=== PATIENT | female | born 2000 | race Caucasian/White ===

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

== ENCOUNTER → 2020-06-01 | Outpatient (REF) | payer OTHER, MEDICAID ==
[2020-06-01 12:38] LABS: APPEARANCE, URINE CLEAR (CLEAR); BACTERIA, URINE AUTO 1+ (NEGATIVE); BILIRUBIN, URINE AUTO NEGATIVE (NEGATIVE); BLOOD, URINE BLOOD NEGATIVE (NEGATIVE); COLOR, URINE YELLOW (YELLOW); GLUCOSE, URINE (UA) AUTO NEGATIVE (NEGATIVE); KETONE, URINE AUTO NEGATIVE (NEGATIVE); LEUKOCYTE ESTERASE, URINE AUTO NEGATIVE (NEGATIVE); MUCUS, URINE SMALL (NEGATIVE); NITRITE, URINE AUTO NEGATIVE (NEGATIVE); PROTEIN, URINE AUTO NEGATIVE (NEGATIVE); RBC, URINE AUTO 1 /HPF (0-3); SPECIFIC GRAVITY URINE AUTO 1.024 (1.002-1.035); SQUAMOUS EPITHELIAL CELL UR AU 1 /HPF (0-6); UROBILINOGEN, URINE AUTO 0.2 mg/dL (0.0-2.0); WBC, URINE AUTO 1 /HPF (0-3)
== END ==
LOC: M LAB REF 12:09
PROVIDERS: ATTEND Physician Assistant Medical
DX: R30.0 Dysuria (principal)

== ENCOUNTER → 2021-05-09 | Outpatient (CLI) | payer OTHER, MEDICAID ==
[~2021-05-09] MED LIST changes: -LEVOTAB10; +LEVOTAB10 PO; -TRI-LO-MARZIA; +TRI-LO-MARZIA PO
== END ==
LOC: M LABSMTC 10:01
PROVIDERS: ATTEND Anesthesiology
DX: Z01.818 Encounter for other preprocedural examination (principal); Z11.52 Encounter for screening for COVID-19

== ENCOUNTER 2021-05-14 09:06 | Day surgery (SDC) | payer OTHER, MEDICAID ==
[~2021-05-14] VITALS: Ht 172.7 cm; Wt 134.3 kg
[~2021-05-14 09:06] MED LIST changes: +LR 1,000 ML IV ONE
[2021-05-14] MEDS ORDERED: METHYLENE BLUE 0.5% (5MG/ML) 10 ML AMP (PROVAYBLUE) As Ordered ONE (09:30)
[2021-05-14] MEDS ORDERED: BUPIVACAINE HCL 0.5% 30ML VIAL As Ordered ONE (09:30)
[2021-05-14] MEDS ORDERED: OXYMETAZOLINE 0.05% NASAL SPRAY (AFRIN) As Ordered ONE (09:30)
[2021-05-14] MEDS ORDERED: ONDANSETRON 4MG/2ML VIAL As Ordered ONE (10:11)
[2021-05-14] MEDS ORDERED: fentaNYL 100 MCG/2 ML INJECTION As Ordered ONE ×3 (10:11→11:03)
[2021-05-14] MEDS ORDERED: LIDOCAINE 2% 100MG/5ML SDV (FOR ANES.) As Ordered ONE (10:11)
[2021-05-14] MEDS ORDERED: MIDAZOLAM INJ 2MG/2ML VIAL (J2250 PER 1MG) As Ordered ONE (10:11)
[2021-05-14] MEDS ORDERED: METOCLOPRAMIDE INJ 10MG/2ML VIAL (J2765 PER 1) As Ordered ONE (10:11)
[2021-05-14] MEDS ORDERED: dexameTHASONE 4 MG/ML 1ML VIAL (J1100 PER 1MG) As Ordered ONE (10:11)
[2021-05-14] MEDS ORDERED: ACETAMINOPHEN 1000MG 100ML IV BTL (OFIRMEV) (J0131 PER 10MG) As Ordered ONE (10:11)
[2021-05-14] MEDS ORDERED: propofoL 200 MG/20 ML VIAL As Ordered ONE (10:11)
[2021-05-14] MEDS ORDERED: DESFLURANE 240 ML INHALANT As Ordered ONE (10:28)
[2021-05-14] MEDS ORDERED: SEVOFLURANE INHAL SOLN 250 ML BTL As Ordered ONE (10:31)
[2021-05-14] MEDS: fentaNYL 100 MCG/2 ML INJECTION IV PRN ×4 (11:06→11:31)
[2021-05-14] MEDS ORDERED: LR 1,000 ML IV SCH ×2 (11:20→12:05)
[2021-05-14] MEDS ORDERED: ONDANSETRON 4MG/2ML VIAL IV PRN ×2 (11:20→12:05)
[2021-05-14] MEDS ORDERED: oxyCODONE 5MG TAB PO PRN (11:20)
[2021-05-14] MEDS ORDERED: HYDROcodone/APAP LIQUID 7.5-325MG 15ML UDC (LORTAB ELIXIR) PO PRN (12:05)
[2021-05-14 12:40] VITALS: BP 146/77
== END 2021-05-14 12:54 | disposition home or self-care (01) ==
LOC: M SDC 09:06
PROVIDERS: ATTEND Otolaryngology
DX: J35.3 Hypertrophy of tonsils with hypertrophy of adenoids (principal); K21.9 Gastro-esophageal reflux disease without esophagitis; R06.83 Snoring; Z77.098 Contact with and (suspected) exposure to other hazardous, chiefly nonmedicinal, chemicals; Z79.3 Long term (current) use of hormonal contraceptives; F12.20 Cannabis dependence, uncomplicated
CPT/HCPCS: 42821; 81025; 88302; J0131; J1100; J2250; J2405; J2765; J3010; Q9968

== ENCOUNTER → 2021-11-15 | Outpatient (REF) | payer OTHER, MEDICAID ==
[~2021-11-15] MED LIST changes: -LR 1,000 ML IV ONE
== END ==
LOC: M LAB REF 16:58
PROVIDERS: ATTEND Physician Assistant
DX: B34.9 Viral infection, unspecified (principal)

== ENCOUNTER → 2022-03-23 | Outpatient (REF) | payer OTHER, MEDICAID | LOC: M WUC 18:52 | PROVIDERS: ATTEND Student in an Organized Health Care Education/Training Program | DX: J02.9 Acute pharyngitis, unspecified (principal) ==

== ENCOUNTER 2022-04-09 21:14 | Emergency (ER) | payer OTHER ==
[~2022-04-09] VITALS: Ht 172.7 cm; Wt 118.2 kg
[2022-04-09 21:14] VITALS: BP 147/79
[2022-04-09] MEDS ORDERED: MORPHINE 10 MG/ML 1ML VIAL IM ONE (21:45)
[2022-04-09] MEDS ORDERED: SILVER SULFADIAZINE 1% CR 50 GM JAR TOP ONE (21:45)
[2022-04-09] MEDS ORDERED: BOOSTRIX/ADACEL VACCINE (DIPHTH/PERTUSS/ACELL/TETANUS) 0.5ML SYR IM.IMMUN ONE (21:55)
[2022-04-09] MEDS ORDERED: PERC5TAB12 PO (22:05)
[2022-04-09] MEDS ORDERED: SILV1CRE60 TOP (22:05)
[2022-04-09] MEDS ORDERED: OXYCODONE/APAP 5MG/325MG(HOME DOSE PACK) PO ONE (22:50)
== END 2022-04-09 23:09 | disposition home or self-care (01) ==
LOC: M ED 21:14
DX: T22.112A Burn of first degree of left forearm, initial encounter (principal); T25.222A Burn of second degree of left foot, initial encounter; T31.0 Burns involving less than 10% of body surface; X12.XXXA Contact with other hot fluids, initial encounter; Y99.0 Civilian activity done for income or pay; J30.2 Other seasonal allergic rhinitis
CPT/HCPCS: 90471; 90715; 96372; 99284; J2270

== ENCOUNTER 2022-07-02 12:29 | Emergency (ER) | payer OTHER ==
[~2022-07-02] VITALS: Ht 172.7 cm; Wt 109.6 kg
[~2022-07-02 12:29] MED LIST changes: +PERC5TAB12 PO; +SILV1CRE60 TOP
[2022-07-02 12:30] VITALS: BP 132/89
[2022-07-02 13:15] LABS: HEMATOCRIT 47.7 % (36.0-47.0); HEMOGLOBIN 16.3 g/dl (12.0-15.5); MEAN CORPUSCULAR HGB CONC 34.2 g/dl (32.0-36.5); MEAN CORPUSCULAR VOLUME 90.7 fl (80.0-96.0); PLATELET COUNT, AUTOMATED 222 10^3/uL (150-450); RED BLOOD COUNT 5.26 10^6/uL (4.00-5.40)
[2022-07-02 13:44] LABS: BLOOD UREA NITROGEN 17 MG/DL (9-23); CALCIUM LEVEL 8.9 MG/DL (8.5-10.1); CARBON DIOXIDE LEVEL 22 MMOL/L (20-31); CHLORIDE LEVEL 98 MMOL/L (98-107); CREATININE FOR GFR 0.89 MG/DL (0.55-1.30); GLOMERULAR FILTRATION RATE > 60.0 (>60); GLUCOSE, FASTING 98 MG/DL (60-100); POTASSIUM SERUM 3.6 MMOL/L (3.5-5.1); SODIUM LEVEL 133 MMOL/L (136-145)
[2022-07-02 15:06] LABS: HCG, SERUM QUALITATIVE NEGATIVE (NEGATIVE)
[2022-07-02] MEDS ORDERED: ONDA4TAB6 PO (15:53)
[2022-07-02] MEDS ORDERED: ONDANSETRON 4MG ORAL DISINTEGRATING TAB PO ONE (15:55)
== END 2022-07-02 16:26 | disposition home or self-care (01) ==
LOC: M ED 12:29
DX: R11.2 Nausea with vomiting, unspecified (principal); R19.7 Diarrhea, unspecified; Z79.899 Other long term (current) drug therapy; Z79.3 Long term (current) use of hormonal contraceptives

== ENCOUNTER → 2022-09-22 | Outpatient (REF) | payer OTHER ==
[~2022-09-22] MED LIST changes: +ONDA4TAB6 PO
== END ==
LOC: M SFHCPLAZ 19:02
PROVIDERS: ATTEND Nurse Practitioner Adult Health
DX: R19.7 Diarrhea, unspecified (principal)

== ENCOUNTER → 2022-09-22 | Outpatient (CLI) | payer OTHER ==
[2022-09-22 14:08] LABS: HEMATOCRIT 42.9 % (36.0-47.0); HEMOGLOBIN 14.1 g/dl (12.0-15.5); HEMOGLOBIN A1c 4.9 % (4.0-6.0); MEAN CORPUSCULAR HEMOGLOBIN 30.9 pg (27.0-33.0); MEAN CORPUSCULAR HGB CONC 32.9 g/dl (32.0-36.5); MEAN CORPUSCULAR VOLUME 94.1 fl (80.0-96.0); PLATELET COUNT, AUTOMATED 230 10^3/uL (150-450); RED BLOOD COUNT 4.56 10^6/uL (4.00-5.40); WHITE BLOOD COUNT 8.8 10^3/uL (4.0-10.0)
[2022-09-22 14:16] LABS: ALBUMIN 4.1 G/DL (3.2-5.2); ALKALINE PHOSPHATASE 76 U/L (46-116); ALT/SGPT 20 U/L (7.0-40); AST/SGOT 15 U/L (<34); BILIRUBIN,TOTAL 2.1 MG/DL (0.3-1.2); BLOOD UREA NITROGEN 10 MG/DL (9-23); CALCIUM LEVEL 9.4 MG/DL (8.5-10.1); CARBON DIOXIDE LEVEL 30 MMOL/L (20-31); CHLORIDE LEVEL 102 MMOL/L (98-107); CREATININE FOR GFR 0.77 MG/DL (0.55-1.30); GLOMERULAR FILTRATION RATE > 60.0 (>60); GLUCOSE, FASTING 79 MG/DL (60-100); POTASSIUM SERUM 3.7 MMOL/L (3.5-5.1); SODIUM LEVEL 138 MMOL/L (136-145); TOTAL PROTEIN 7.9 G/DL (5.7-8.2)
[2022-09-23 16:27] LABS: HEPATITIS B CORE ANTIBODY IGM NEGATIVE (NEGATIVE); HEPATITIS C VIRUS ABY INDEX 0.15 INDEX (<0.8)
== END ==
LOC: M PLAIMG 11:17
PROVIDERS: ATTEND Nurse Practitioner Adult Health
DX: R11.2 Nausea with vomiting, unspecified (principal); Z76.89 Persons encountering health services in other specified circumstances; Z83.3 Family history of diabetes mellitus

== ENCOUNTER → 2022-12-25 | Outpatient (REF) | payer OTHER ==
[2022-12-25 20:37] LABS: ALBUMIN 3.5 G/DL (3.2-5.2); ALKALINE PHOSPHATASE 77 U/L (46-116); ALT/SGPT 19 U/L (7.0-40); AST/SGOT 21 U/L (<34); BILIRUBIN,TOTAL 0.7 MG/DL (0.3-1.2); BLOOD UREA NITROGEN 8 MG/DL (9-23); CALCIUM LEVEL 8.8 MG/DL (8.5-10.1); CARBON DIOXIDE LEVEL 30 MMOL/L (20-31); CHLORIDE LEVEL 106 MMOL/L (98-107); CREATININE FOR GFR 0.55 MG/DL (0.55-1.30); GLOMERULAR FILTRATION RATE > 60.0 (>60); GLUCOSE, FASTING 101 MG/DL (60-100); SODIUM LEVEL 139 MMOL/L (136-145); TOTAL PROTEIN 7.3 G/DL (5.7-8.2)
[2022-12-25 20:57] LABS: HEMOGLOBIN A1c 4.8 % (4.0-6.0)
== END ==
LOC: M LAB REF 19:56
PROVIDERS: ATTEND Nurse Practitioner Adult Health
DX: Z00.00 Encounter for general adult medical examination without abnormal findings (principal); Z83.3 Family history of diabetes mellitus

== ENCOUNTER → 2024-11-13 | Outpatient (REF) | payer OTHER ==
[~2024-11-13] MED LIST changes: -IBUP-1022 PO; +IBUP600T42 PO; -MINO50TA PO; +MINO50TA5 PO; +ONDA-282 PO; -ONDA4TAB6 PO
[2024-11-13 13:04] LABS: APPEARANCE, URINE HAZY (CLEAR); BACTERIA, URINE AUTO 1+ (NEGATIVE); BILIRUBIN, URINE AUTO NEGATIVE (NEGATIVE); BLOOD, URINE BLOOD NEGATIVE (NEGATIVE); GLUCOSE, URINE (UA) AUTO NEGATIVE (NEGATIVE); KETONE, URINE AUTO NEGATIVE (NEGATIVE); LEUKOCYTE ESTERASE, URINE AUTO NEGATIVE (NEGATIVE); MUCUS, URINE SMALL (NEGATIVE); NITRITE, URINE AUTO NEGATIVE (NEGATIVE); PROTEIN, URINE AUTO NEGATIVE (NEGATIVE); RBC, URINE AUTO 1 /HPF (0-3); SPECIFIC GRAVITY URINE AUTO 1.015 (1.002-1.035); SQUAMOUS EPITHELIAL CELL UR AU 4 /HPF (0-6); UROBILINOGEN, URINE AUTO 0.2 mg/dL (0.0-2.0); WBC, URINE AUTO 1 /HPF (0-3)
== END ==
LOC: M LAB REF 11:32
PROVIDERS: ATTEND Physician Assistant
DX: N39.0 Urinary tract infection, site not specified (principal)

== ENCOUNTER → 2024-11-24 | Outpatient (CLI) | payer OTHER ==
[2024-11-24 17:58] LABS: PLATELET COUNT, AUTOMATED 282 10^3/uL (150-450)
[2024-11-24 18:19] LABS: ALT/SGPT 174 U/L (7.0-40); AST/SGOT 91 U/L (<34); CALCIUM LEVEL 8.7 MG/DL (8.5-10.1); CARBON DIOXIDE LEVEL 29 MMOL/L (20-31); CHLORIDE LEVEL 102 MMOL/L (98-107); CREATININE FOR GFR 0.69 MG/DL (0.55-1.30); GLOMERULAR FILTRATION RATE > 90.0 (>60); IRON (FE) 66 UG/DL (50-170); PERCENT SATURATION 18.8 % (13.2-45.0); POTASSIUM SERUM 4.1 MMOL/L (3.5-5.1); SODIUM LEVEL 139 MMOL/L (136-145)
== END ==
LOC: M WUC 13:36
PROVIDERS: ATTEND Nurse Practitioner Adult Health
DX: D50.9 Iron deficiency anemia, unspecified (principal)